=== PATIENT | male | born 1945 | race Caucasian/White ===

== ENCOUNTER 2023-09-10 08:21 | Emergency (ER) | payer MEDICARE, SELFPAY ==
[2023-09-10 08:36] VITALS: BP 164/80; PULSE 85; RESP 18; TEMP 36.6; O2SAT 98
--- NOTE | 2023-09-10 09:15 | ED.URI ---
HPI - URI/Sore Throat General Chief Complaint: Upper Respiratory Infection Stated Complaint: Head & chest congestion/fever Time Seen by Provider: 09/10/23 09:16 Source: patient, RN notes reviewed and old records reviewed Mode of arrival: ambulatory Limitations: no limitations History of Present Illness HPI Narrative: 77-year-old male who presents to [facility] with complaints of and head and chest congestion for the past 2 days with pain and pressure to his face and frontal headache. Patient has dry hacking cough, denies any shortness of breath. Patient reports that he has bee taking Airborne for his symptoms without any improvement, Patient states that he has been running a low grade temperature of around 100.4F with no body aches or chills reported.. Patient reports he is visiting area from [place] to see his mother and is concerned of infection.Patient reports that he is up to date on his flu shot and COVID vaccinations. MD elicited complaint: cough and sore throat Pertinent past history: other (sinus problems) Onset (ago): day(s) (2) Severity: moderate Able to tolerate fluids by mouth: Yes Treatments prior to arrival: other (airborne) Related Data Home Medications Medication Instructions Recorded Confirmed finasteride 5 mg tablet mg 09/10/23 losartan 100 mg tablet mg 09/10/23 rosuvastatin 20 mg tablet mg 09/10/23 tamsulosin 0.4 mg capsule mg PO 09/10/23 verapamil 180 mg tablet,extended mg PO 09/10/23 release Allergies Allergy/AdvReac Type Severity Reaction Status Date / Time No Known Allergies Allergy Verified 09/10/23 08:35 Review of Systems Review of Systems: CONSTITUTIONAL: Denies malaise, chills, sweats, positive for low grade fever. EYES: Denies visual changes, redness, or discharge. ENT: Reports rhinorrhea, congestion,facial sinus pain, no otalgia and no sore throat. CARDIOVASCULAR: Denies chest pain, palpitations, or edema. RESPIRATORY: Reports cough.? Denies dyspnea. GASTROINTESTINAL: Denies abdominal pain, nausea, vomiting, diarrhea SKIN: Denies rash or itching. MUSCULOSKELETAL: Denies myalgia. NEUROLOGIC: reports frontal headache. All systems reviewed & are unremarkable except as noted in HPI and below PMFSH Past Medical History Medical History (Updated 09/10/23 @ 09:37 by Peggy Schaefer NP) BPH (benign prostatic hyperplasia) Hyperlipidemia Hypertension Social History Social History (Updated 09/10/23 @ 09:34 by Peggy Schaefer NP) Smoking status: Never smoker Alcohol intake: current Alcohol use details: rare social Substance use type: does not use Living arrangements: with family Occupation/Education: retired Gender identity (if verbalized by the patient): Male Comments At time of signature, agree with nursing past medical, surgical, social and family history. There is no relevant family history pertinent to the presenting complaint Exam Narrative: GENERAL: Well-appearing, well-nourished, and in no acute distress. HEAD: Normocephalic EYES: PERRLA, conjunctivae clear ENT: Nares clear, turbinates edematous and erythematous, clear to light yellow discharge positive for sinus pressure and frontal headache Mucous membranes moist. TM pearly lima with dull light reflex bilaterally; no tragal tenderness. Oropharynx erythematous without lesions. Tonsils not enlarged and without exudate, no drooling, no hoarseness, no trismus, uvula midline.post nasal drainage noted NECK: Supple. No lymphadenopathy CHEST: Clear to auscultation, breath sounds equal. No wheezing, rhonchi, rales, or stridor. No respiratory distress, speaks in full sentences.cough SAO2 98% on room air HEART: Regular rate and rhythm. No murmur heard. SKIN: Warm, dry, no rash. NEURO: Alert and oriented x3. PSYCH: Normal mood and affect Course Course Emergency Course: Patient is aware of diagnosis, understands and agrees to treatment plan.? Anticipatory guidance g
== END 2023-09-10 09:45 | disposition home or self-care (01) ==
PROVIDERS: Emergency Provider Registered Nurse
DX: J06.9 Acute upper respiratory infection, unspecified (principal); E78.5 Hyperlipidemia, unspecified; I10 Essential (primary) hypertension; Z79.899 Other long term (current) drug therapy
CPT/HCPCS: 99213; G0463

== ENCOUNTER 2023-09-14 11:59 | Emergency (ER) | payer MEDICARE, SELFPAY ==
[2023-09-14 12:06] VITALS: BP 140/79; PULSE 70; RESP 20; TEMP 36.8; O2SAT 99
--- NOTE | 2023-09-14 12:31 | ED.URI ---
HPI - URI/Sore Throat General Chief Complaint: Upper Respiratory Infection Stated Complaint: chest congestion Time Seen by Provider: 09/14/23 12:32 Source: patient, RN notes reviewed and old records reviewed Mode of arrival: ambulatory Limitations: no limitations History of Present Illness HPI Narrative: 77 year old male accompanied by spouse presents to express care with complaints of chest congestion, loose cough, no recent fever or any shortness of breath or wheezing for the past 3 days. Was seen on the for sinus congestion and drainage and sinus pressure,which has improved but still having some bloody sinus drainage.Patient is taking Advil,Coricidin and is still taking Z-pack which was ordered on the . MD elicited complaint: cough, rhinorrhea, nasal congestion and other (chest congestion) Onset (ago): day(s) (3-4) Able to tolerate fluids by mouth: Yes Treatments prior to arrival: ibuprofen and other (Z- pack,coricidin) Related Data Home Medications Medication Instructions Recorded Confirmed finasteride 5 mg tablet 5 mg PO DAILY 09/10/23 09/14/23 losartan 100 mg tablet 100 mg PO DAILY 09/10/23 09/14/23 rosuvastatin 20 mg tablet 20 mg PO DAILY 09/10/23 09/14/23 tamsulosin 0.4 mg capsule 0.4 mg PO DAILY 09/10/23 09/14/23 verapamil 180 mg tablet,extended 180 mg PO DAILY 09/10/23 09/14/23 release Allergies Allergy/AdvReac Type Severity Reaction Status Date / Time No Known Allergies Allergy Verified 09/14/23 12:26 Review of Systems Review of Systems: CONSTITUTIONAL: Reports malaise, chills, sweats, no recent fevers.. EYES: Denies visual changes, redness, or discharge. ENT: Reports rhinorrhea, congestion, sinus pain,no otalgia and no sore throat. CARDIOVASCULAR: Denies chest pain, palpitations, or edema. RESPIRATORY: Reports cough.? Denies dyspnea. GASTROINTESTINAL: Denies abdominal pain, nausea, vomiting, diarrhea SKIN: Denies rash or itching. MUSCULOSKELETAL: Denies myalgia. NEUROLOGIC: Denies headache. All systems reviewed & are unremarkable except as noted in HPI and below PMFSH Past Medical History Medical History BPH (benign prostatic hyperplasia) Hyperlipidemia Hypertension Social History Social History Smoking status: Never smoker Alcohol intake: current Alcohol use details: rare social Substance use type: does not use Living arrangements: with family Occupation/Education: retired Gender identity (if verbalized by the patient): Male Comments At time of signature, agree with nursing past medical, surgical, social and family history. There is no relevant family history pertinent to the presenting complaint Exam Narrative: GENERAL: Well-appearing, well-nourished, and in no acute distress. HEAD: Normocephalic EYES: PERRLA, conjunctivae clear ENT: Nares clear, turbinates edematous and erythematous, bloody discharge. Mucous membranes moist. TM pearly lima with dull light reflex bilaterally; no tragal tenderness. Oropharynx erythematous without lesions. Tonsils not enlarged and without exudate, no drooling, no hoarseness, no trismus, uvula midline.post nasal drainage. NECK: Supple. No lymphadenopathy CHEST: Clear to auscultation, breath sounds equal. No wheezing, rhonchi, rales, or stridor. No respiratory distress, speaks in full sentences.loose cough,SAO2 99% on room air HEART: Regular rate and rhythm. No murmur heard. SKIN: Warm, dry, no rash. NEURO: Alert and oriented x3. PSYCH: Normal mood and affect Course Course Emergency Course: Patient is aware of diagnosis, understands and agrees to treatment plan.? Anticipatory guidance given.? Patient agrees to follow-up as directed and is aware of reasons to seek care at the emergency department. Portions of this record may have been created with voice recognition software Level of Car
== END 2023-09-14 13:15 | disposition home or self-care (01) ==
PROVIDERS: Emergency Provider Registered Nurse
DX: R05.1 Acute cough (principal); E78.5 Hyperlipidemia, unspecified; I10 Essential (primary) hypertension; Z79.899 Other long term (current) drug therapy; Z20.822 Contact with and (suspected) exposure to COVID-19
CPT/HCPCS: 87426; 87804; 99213; G0463